=== PATIENT | male | born 1945 | race Hispanic/Latino ===

== ENCOUNTER 2022-03-20 10:10 | Outpatient (CLI) | payer MEDICARE ==
[2022-03-20 13:37] LABS: #Basophils 0.1 10x3/uL (0.0-0.2); #Eosinphils 0.1 10x3/uL (0.0-0.5); #Monocytes 0.6 10x3/uL (0.0-1.1); #Neutrophils 6.5 10x3/uL (1.5-8.4); %Basophils 0.8 % (0.0-2.0); %Eosinophils 0.9 % (0.0-6.0); %Lymphocytes 14.5 % (18.0-47.0); %Neutrophils 76.4 % (40.0-75.0); Hemoglobin 14.4 g/dL (13.5-17.5); Mean Corpuscular HGB CONC 34.4 g/dL (32.0-36.0); Mean Corpuscular Hemoglobin 30.1 pg (27.0-33.0); Mean Corpuscular Volume 87.3 fl (81.2-95.1); Mean Platelet Volume 10.9 fl (7.4-10.4); Platelet Count 241 10x3/uL (150-450); RBC Distribution Width 12.5 % (11.5-14.5); Red Blood Cell (RBC) Count 4.79 10x6/uL (4.32-5.72); White Blood Cell (WBC) Count 8.6 10x3/uL (3.5-10.5)
[2022-03-20 13:40] LABS: Anion Gap 14 mmol/L (10-20); BUN (Urea Nitrogen) 14 mg/dL (8.4-25.7); Calc. Creatinine Clearance 0 mL/min (70-130); Calcium 8.8 mg/dL (7.8-10.44); Carbon Dioxide 22 mmol/L (23-31); Chloride 108 mmol/L (98-107); Estimated GFR 76; Glucose 84 mg/dL (83-110); Potassium 4.1 mmol/L (3.5-5.1); Sodium 140 mmol/L (136-145)
== END 2022-03-20 10:11 | disposition home or self-care (01) ==
LOC: LABBT 10:10
PROVIDERS: ATTEND Specialist
DX: Z01.818 Encounter for other preprocedural examination (principal); K40.20 Bilateral inguinal hernia, without obstruction or gangrene, not specified as recurrent; Z20.822 Contact with and (suspected) exposure to COVID-19
CPT/HCPCS: 80048; 85025; 87811; 93005; 93010

== ENCOUNTER 2022-03-23 05:48 | Day surgery (SDC) | payer MEDICARE ==
[2022-03-22 11:28] VITALS: BMI 24.7
[2022-03-23] MEDS ORDERED: Ketorolac Tromethamine 30 MG/ML VIAL ONE (06:07)
[2022-03-23] MEDS ORDERED: Acetaminophen 500 MG TAB ONE (06:07)
[2022-03-23] MEDS ORDERED: Gabapentin 100 MG CAP PO SCH (06:15)
[2022-03-23] MEDS ORDERED: Bupivacaine/Epinephrine 0.25% 30 ML VIAL ONE (06:37)
[2022-03-23] MEDS ORDERED: Tamsulosin HCl 0.4 MG CAP ONE (07:35)
[2022-03-23] MEDS ORDERED: fentaNYL Citrate/PF 100 MCG/2 ML SYRINGE ONE (07:44)
[2022-03-23] MEDS ORDERED: CEFAZOLIN 2 GM VIAL ONE (07:50)
[2022-03-23] MEDS ORDERED: Sodium Chloride 0.9% 100 ML ONE (07:50)
[2022-03-23] MEDS ORDERED: ePHEDrine 50 MG/ML VIAL ONE (07:58)
[2022-03-23] MEDS ORDERED: Dexamethasone 20 MG/5 ML VIAL ONE (07:58)
[2022-03-23] MEDS ORDERED: NEOSTIGMINE 3 MG/3 ML SYR 3 MG/3 ML SYRINGE ONE (07:58)
[2022-03-23] MEDS ORDERED: Lidocaine 1% MPF 2 ML VIAL ONE (07:58)
[2022-03-23] MEDS ORDERED: Ondansetron PF 4 MG/2 ML Vial ONE (07:58)
[2022-03-23] MEDS ORDERED: Rocuronium Bromide 10 MG/ML (10ML VIAL) ONE (07:58)
[2022-03-23] MEDS ORDERED: PROPOFOL 200 MG/20 ML VIAL ONE (07:58)
[2022-03-23] MEDS ORDERED: Glycopyrrolate 0.2 MG/ML 5 ML SYRINGE ONE (07:58)
[2022-03-23] MEDS ORDERED: HYDROcodone/Acetaminophen 5/325 mg Tablet ONE (10:54)
== END 2022-03-23 11:45 | disposition home or self-care (01) ==
LOC: SDC 05:48
PROVIDERS: ATTEND Specialist
PROC: 0YUA4JZ Supplement Bilateral Inguinal Region with Synthetic Substitute, Percutaneous Endoscopic Approach (ICD-10-PCS; principal; 2022-03-23)
DX: K40.20 Bilateral inguinal hernia, without obstruction or gangrene, not specified as recurrent (principal)
CPT/HCPCS: 49650; C1781 ×2; J0690; J1100; J1885; J2405; J2704; J3490